=== PATIENT | female | born 1995 | race Caucasian/White ===

== ENCOUNTER 2017-11-24 10:52 | Emergency (ER) | payer SELFPAY ==
[~2017-11-24] VITALS: Ht 160 cm; Wt 115.8 kg
[2017-11-24] MEDS ORDERED: MECLIZINE CHEWABLE 25 MG TAB PO ONE (12:00)
[2017-11-24 12:12] LABS: BASOPHILS # (AUTO) 0.02 x10^3/uL (0-0.1); BASOPHILS % (AUTO) 0 % (0-1); EOSINOPHILS % (AUTO) 1 % (1-7); LYMPHOCYTES # (AUTO) 1.49 x10^3/uL (1-3.4); LYMPHOCYTES % (AUTO) 14 % (22-44); MD NO; MEAN CORPUSCULAR HEMOGLOBIN 29.2 pg (27.0-34.8); MEAN CORPUSCULAR HGB CONC 33.8 g/dL (32.4-35.8); MEAN CORPUSCULAR VOLUME 86.5 fL (80-100); MEAN PLATELET VOLUME 9.9 fL (7.4-10.4); MONOCYTES # (AUTO) 0.55 x10^3/uL (0.2-0.8); MONOCYTES % (AUTO) 5 % (2-9); NEUTROPHILS # (AUTO) 8.23 x10^3/uL (1.8-6.8); NEUTROPHILS % (AUTO) 79 % (42-75); PLATELET COUNT 256 x10^3/uL (130-400); RED BLOOD COUNT 5.67 x10^6/uL (3.82-5.3); RED CELL DISTRIBUTION WIDTH 13.2 % (9.6-15.2)
[2017-11-24] MEDS ORDERED: MECLIZINE CHEWABLE 25 MG TAB ONE (12:15)
[2017-11-24 12:23] LABS: ANION GAP 7 mmol/L (5-15); CALCIUM 8.8 mg/dL (8.5-10.1); CHLORIDE 107 mmol/L (98-107); CREATININE 0.68 mg/dL (0.55-1.02)
[2017-11-24 12:33] LABS: MICROSCOPIC NOT IND
[2017-11-24 12:41] LABS: CULTURE INDICATED? NO
[2017-11-24 15:02] VITALS: BP 123/82
== END 2017-11-24 15:03 | disposition home or self-care (01) ==
LOC: ED 12:47
DX: R42 Dizziness and giddiness (principal)
CPT/HCPCS: 36415; 70450; 80048; 81003; 82040; 85025; 93005; 99285

== ENCOUNTER 2018-01-27 19:38 | Emergency (ER) | payer SELFPAY ==
[~2018-01-27] VITALS: Ht 162.6 cm; Wt 116.6 kg
[2018-01-27 20:01] LABS: MICROSCOPIC NOT IND
[2018-01-27 20:06] LABS: CULTURE INDICATED? NO
[2018-01-27 20:36] LABS: HCG UR SG 1.009 (1.003-1.030)
[2018-01-27 21:02] VITALS: BP 146/76
== END 2018-01-27 21:04 | disposition home or self-care (01) ==
LOC: ED 21:03
DX: S39.012A Strain of muscle, fascia and tendon of lower back, initial encounter (principal); X58.XXXA Exposure to other specified factors, initial encounter; Y93.89 Activity, other specified; Y92.89 Other specified places as the place of occurrence of the external cause; Y99.8 Other external cause status
CPT/HCPCS: 81003; 81025; 99284